=== PATIENT | female | born 1950 | race African-American/Black ===

== ENCOUNTER 2016-10-14 11:44 | Day surgery (SDC) | payer BC ==
[2016-10-14 12:22] LABS: HEMATOCRIT 46.4 % (36.0-48.0); HEMOGLOBIN 15.4 g/dL (12-16); MCH 30.8 pg (26.0-34.0); MCHC 33.2 g/dL (31.0-37.0); MCV 92.8 fL (80.0-100.0); RDW 13.1 % (11.5-14.5); WBC 3.9 10x3/uL (4.8-10.8)
[2016-10-14] MEDS ORDERED: PRAVACHOL40 MG PO (13:47)
[2016-10-14] MEDS ORDERED: MOBIC7.5 MG PO (13:47)
[2016-10-14] MEDS ORDERED: ZYRTEC10 MG PO (13:48)
[2016-10-14] MEDS ORDERED: BAYER CHEWABLE81 MG PO (13:48)
[2016-10-14 13:51] VITALS: BP 118/74; BMI 35.6
--- NOTE | 2016-10-15 11:10 | OP ---
PATIENT NAME: KAMERON HAMMONDS MEDICAL RECORD: [id number] :54 LOCATION:[facility] ADMISSION DATE: SURGEON: JOVITA ROUSE DO DATE OF OPERATION: 10/14/2016 PROCEDURE: Colonoscopy with polypectomy. SCOPE: Olympus video pediatric colonoscope. MEDICATIONS: Propofol 500 mg IV per anesthesia. INDICATIONS FOR PROCEDURE: Personal history of colonic polyps. FINDINGS: Informed consent was given. The patient was made comfortable with the above medications. After reaching an adequate level of sedation by slow IV push, the patient was placed on her left side. The digital rectal examination was performed and was normal. The endoscope was then advanced under direct visualization through the rectum to the cecum. On advancement in the sigmoid colon, there was a benign appearing sessile polyp measuring 4 mm in diameter, which was removed with cold forceps. Scope was advanced all the way to the cecum where just distal to the ileocecal valve in the ascending colon, another benign appearing sessile polyp was visualized that measured approximately 5 mm in diameter. It was removed with cold forceps. This site was monitored shortly and there was some oozing of blood, which was not stopping spontaneously. For this reason, a single endoclip was placed successfully for hemostasis. A second polyp was just distal to this site, It was slightly larger. It measured approximately 8 mm in diameter. This polyp was removed with endoscopic mucosal resection technique using a saline pillow and snare cautery polypectomy. It was completely removed and 1 piece and completely retrieved. Scope was withdrawn further where 2 more sigmoid polyps were visualized, which were benign-appearing, sessile polyps measuring approximately 5 mm in diameter. Both of these were removed with hot forceps technique. Scope was then withdrawn in the rectum and retroflexed where the rectal mucosa appeared normal. Scope was withdrawn from the patient. The patient tolerated the procedure well and there were no complications. Estimated blood loss was less than 5 cc and withdrawal time was greater than 15 minutes. IMPRESSION: Five separate benign appearing sessile polyps removed with various methods including cold forceps, endoscopic mucosal resection and hot forceps. PLAN AND RECOMMENDATIONS: 1. Discharge home when recovery parameters are met. 2. Follow up all the biopsy specimens results with further recall recommendations pending pathology of the polyps. I anticipate due to the number and types of polyps that this will be 3 years' time. 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 10/14/16 [place] [id number] [place] [id number]
== END 2016-10-14 17:15 | disposition home or self-care (01) ==
LOC: D.OPS 11:44
PROVIDERS: Anesthesiology
DX: D12.2 Benign neoplasm of ascending colon (principal); D12.5 Benign neoplasm of sigmoid colon; K63.5 Polyp of colon

== ENCOUNTER → 2017-04-05 16:42 | Outpatient (CLI) | payer BC ==
[~2017-04-05 16:42] MED LIST: BAYER CHEWABLE81 MG PO; MOBIC7.5 MG PO; PRAVACHOL40 MG PO; ZYRTEC10 MG PO
== END | disposition home or self-care (01) ==
LOC: D.MAMMO 04-02 08:00
DX: Z12.31 Encounter for screening mammogram for malignant neoplasm of breast (principal)

== ENCOUNTER → 2018-04-06 19:24 | Outpatient (CLI) | payer BC | END | disposition home or self-care (01) | LOC: D.MAMMO 09:45 | DX: Z12.31 Encounter for screening mammogram for malignant neoplasm of breast (principal) ==